=== PATIENT | female | born 1975 | race Caucasian/White ===

== ENCOUNTER → 2018-02-11 | Outpatient (CLI) | payer OTHER ==
[~2018-02-11] MED LIST: 'PARAFON FORTE500 M1 PO; ALBUTEROL0.09 MG/A2 IH; AMOXICILLIN500 MG PO; ATIVAN1 MG PO; AUGMENTIN 875 M1 TAB PO; CLARITIN10 MG PO; CLINDAMYCIN HC300 MG PO; DARVOCET N 1001 TAB PO; FLOVENT0.044 MG/A; HYDROCODONE BIT1 T11 PO; IBU800 MG PO; LASIX20 MG PO; PERCOCET 325 MG1 TA5 PO; SYMBICORT1 AE1 INH; TESSALON PERLE200 MG PO; TRAMADOL HCL50 MG PO; VENTOLIN0.09 MG/AC IH; VICODIN 500 MG-1 TAB PO; VITAMIN D5000 I3 PO
== END | disposition home or self-care (01) ==
LOC: US 15:39
DX: E04.1 Nontoxic single thyroid nodule (principal); E03.9 Hypothyroidism, unspecified

== ENCOUNTER 2018-04-05 13:55 | Emergency (ER) | payer OTHER ==
[~2018-04-05] VITALS: Wt 96.6 kg
[2018-04-05 13:55] VITALS: BP 113/63
[2018-04-05] MEDS ORDERED: NORCO 5-325 TA1 EACH PO (15:30)
== END 2018-04-05 15:31 | disposition home or self-care (01) ==
LOC: ED 13:55
DX: S92.215A Nondisplaced fracture of cuboid bone of left foot, initial encounter for closed fracture (principal); Z98.51 Tubal ligation status; Z79.899 Other long term (current) drug therapy; Z88.1 Allergy status to other antibiotic agents; Z91.041 Radiographic dye allergy status; Z88.6 Allergy status to analgesic agent; Z88.8 Allergy status to other drugs, medicaments and biological substances; W01.0XXA Fall on same level from slipping, tripping and stumbling without subsequent striking against object, initial encounter; Y93.89 Activity, other specified; Y92.89 Other specified places as the place of occurrence of the external cause; Y99.9 Unspecified external cause status